=== PATIENT | male | born 1955 | race African-American/Black ===

== ENCOUNTER 2019-09-21 11:15 | Emergency (ER) | payer SELFPAY ==
--- NOTE | 2019-09-21 11:58 | RAD ---
EXAM: Chest one view: HISTORY: Left-sided sternal chest pain nausea, shortness of breath, dizziness COMPARISON: None FINDINGS: Heart size: Within normal limits. Lungs: Clear of acute process. No evidence for confluent pneumonia, pleural effusion, acute edema, or pneumothorax, or other signifi cant acute process. IMPRESSION: No significant acute intrathoracic disease. Minimal atherosclerosis of the aorta.
[2019-09-21 12:29] LABS: Hemoglobin 12.7 g/dL (14.0-18.0); Mean Corpuscular HGB CONC 33.7 g/dL (32.0-36.0); Mean Corpuscular Hemoglobin 28.7 pg (27.0-31.0); Mean Platelet Volume 8.4 fL (7.4-10.4); Platelet Count 185 thou/uL (130-400); RBC Distribution Width 13.6 % (11.5-14.5); Red Blood Cell (RBC) Count 4.42 mill/uL (4.70-6.10); White Blood Cell (WBC) Count 4.1 thou/uL (4.8-10.8)
[2019-09-21 12:45] LABS: Band 1 % (5-11); Lymphocytes 52 % (21-51); MDiff Complete? YES; Monocytes 7 % (0-10); Neutrophil 34 % (42-75); Platelet Morphology Comment Appears Adequate; Polychromasia SLIGHT = 2-3 cells (100X) (0-2/hpf); Reactive Lymphocytes 3 % (0-10)
[2019-09-21 13:00] LABS: ALT (SGPT) 48 U/L (8-55); AST (SGOT) 52 U/L (5-34); Albumin 3.9 g/dL (3.4-4.8); Alkaline Phosphatase 80 U/L (40-110); Anion Gap 13 mmol/L (10-20); BUN (Urea Nitrogen) 12 mg/dL (8.4-25.7); Bilirubin, Total 0.4 mg/dL (0.2-1.2); CK (CPK) 1531 U/L (30-200); Calc. Creatinine Clearance 0 mL/min (70-130); Calcium 9.1 mg/dL (7.8-10.44); Carbon Dioxide 25 mmol/L (23-31); Chloride 106 mmol/L (98-107); Estimated GFR-MDRD 77; Globulin 3.6 g/dL (2.4-3.5); Glucose 97 mg/dL (80-115); Lipase 9 U/L (8-78); Potassium 4.6 mmol/L (3.5-5.1); Protein, Total 7.5 g/dL (5.8-8.1); Sodium 139 mmol/L (136-145)
== END 2019-09-21 13:52 | disposition home or self-care (01) ==
LOC: ERS 11:15
DX: E78.5 Hyperlipidemia, unspecified (principal); R07.9 Chest pain, unspecified; F17.200 Nicotine dependence, unspecified, uncomplicated; E78.1 Pure hyperglyceridemia; Z79.82 Long term (current) use of aspirin
CPT/HCPCS: 71045; 80053; 82550; 83690; 84484; 85025; 93005; 94760